=== PATIENT | female | born 1945 | race Caucasian/White ===

== ENCOUNTER 2023-08-09 18:26 | Emergency (ER) | payer OTHER ==
[~2023-08-09] VITALS: Ht 157.5 cm; Wt 70.8 kg
[2023-08-09 18:40] VITALS: O2SAT 98
[2023-08-09 19:02] VITALS: BP 147/88; PULSE 90; RESP 16; TEMP 98.6
== END 2023-08-09 19:11 | disposition home or self-care (01) ==
LOC: ER 18:26
DX: R68.89 Other general symptoms and signs (principal); J45.909 Unspecified asthma, uncomplicated
CPT/HCPCS: 99281